=== PATIENT | male | born 1990 | race Caucasian/White ===

== ENCOUNTER 2017-08-15 09:19 | Inpatient (IN) | payer OTHER ==
[2017-08-15] VITALS (7 sets, daily range): BP systolic 122–177; BP diastolic 62–94; PULSE 83–107; RESP 16–20; TEMP 98.3–99.9; O2SAT 96–100
[~2017-08-15] VITALS: Ht 180.3 cm; Wt 102.0 kg
[~2017-08-15 09:19] MED LIST: Z.0.NO CURRENT MEDS
--- NOTE | 2017-08-15 09:51 | PD ---
HPI Chief Complaint: ENT Complaint Time Seen by Provider: 09:39 Travel History International Travel<30 days: No Contact w/Intl Traveler<30days: No Traveled to known affect area: No History of Present Illness HPI This is a 27-year-old male who presents to the emergency department with sore throat that's been going on for 1 week, constant, moderate severity unable to swallow or eat and drink for 2 days because of severe pain. His voice is changed. He has felt feverish. He was sent here from an urgent care for concern for "acute tonsillitis". [facility] Past Medical History Medical History: Denies Significant Hx Diminished Hearing: No Immunizations Current: Yes Influenza Vaccination: No Past Surgical History Surgical History: No Previous Surgery Social History Alcohol Use: Yes (DAILY) Tobacco Use: Yes (< 1 ppd) Substance Use: No Allergies-Medications (Allergen,Severity, Reaction): Coded Allergies: No Known Allergies (Verified Adverse Reaction, Unknown, 08/15/17) Reported Meds & Prescriptions Reported Meds & Active Scripts Active No Active Prescriptions or Reported Medications Review of Systems Except as stated in HPI: all other systems reviewed are Neg Physical Exam Narrative GENERAL:Well appearing, no acute distress SKIN: Focused skin assessment warm and dry. HEAD: Atraumatic. Normocephalic. EYES: Pupils equal and round. No injection or drainage. ENT: Swelling, erythema and fullness of the left tonsillar pillar with uvular deviation to the right consistent with a peritonsillar abscess. Hot potato voice. NECK: Trachea midline. CARDIOVASCULAR: Regular rate and rhythm. No murmur appreciated. RESPIRATORY: Clear to auscultation. Breath sounds equal bilaterally. GASTROINTESTINAL: Abdomen soft, non-tender, nondistended. MUSCULOSKELETAL: No obvious deformities. NEUROLOGICAL: Awake and alert. No obvious cranial nerve deficits. Moving all extremities. PSYCHIATRIC: Appropriate mood and affect; insight and judgment normal. Data Data Last Documented VS Vital Signs Date Time Temp Pulse Resp B/P (MAP) Pulse Ox O2 Delivery O2 Flow Rate FiO2 08/15/17 09:21 99.9 107 18 177/94 (121) 96 Orders Orders Complete Blood Count With Diff (08/15/17 09:46) Comprehensive Metabolic Panel (08/15/17 09:46) ^ Insert Iv (08/15/17 09:46) Clindamycin 600 Mg/Ns Premix (Cleocin 60 (08/15/17 10:00) Dexamethasone Inj (Decadron Inj) (08/15/17 10:00) Sodium Chlor 0.9% 1000 Ml Inj (Ns 1000 M (08/15/17 10:00) Group A Rapid Strep Screen (08/15/17 09:48) MDM Medical Decision Making Medical Screen Exam Complete: Yes Emergency Medical Condition: Yes Interpretation(s) Temperature is 100.9 Differential Diagnosis Strep pharyngitis, mononucleosis, peritonsillar abscess Narrative Course This is a 27-year-old male who presents to the emergency department with pharyngitis that's been worsening. On exam he has a peritonsillar abscess. He is having difficulty staying hydrated at home. I think patient requires admission for IV antibiotics, steroids and ENT consultation for possible incision and drainage. Scripts No Active Prescriptions or Reported Meds Deborah Santana MD Aug 15, 2017 09:51
[2017-08-15] MEDS ORDERED: DEXAMETHASONE SOD PHOS 4 MG/ML VIAL IV PUSH ONE (10:00)
[2017-08-15] MEDS ORDERED: SODIUM CHLOR 0.9% 1000 ML INJ 1,000 ML IV SCH (10:00)
[2017-08-15] MEDS ORDERED: CLINDAMYCIN 600 MG/NS PREMIX 50 ML IV ONE (10:00)
[2017-08-15 10:24] LABS: AUTOMATED NEUTROPHIL # 11.5 TH/MM3 (1.8-7.7); BASOPHIL % 0.2 % (0.0-2.0); EOSINOPHIL % 0.3 % (0.0-4.0); HEMATOCRIT 47.7 % (39.0-51.0); LYMPH % 9.6 % (9.0-44.0); LYMPHOCYTE # 1.4 TH/MM3 (1.0-4.8); MEAN CELL VOLUME 89.8 FL (80.0-100.0); MEAN CORPUSCULAR HGB CONC 35.7 % (32.0-36.0); MEAN PLATELET VOLUME 7.4 FL (7.0-11.0); MONO % 9.5 % (0.0-8.0); MONOCYTE # 1.4 TH/MM3 (0-0.9); NEUT % 80.4 % (16.0-70.0); PLATELET COUNT 211 TH/MM3 (150-450); RED BLOOD COUNT 5.31 MIL/MM3 (4.50-5.90); RED CELL DISTRIBUTION WIDTH 12.3 % (11.6-17.2); WHITE BLOOD COUNT 14.2 TH/MM3 (4.0-11.0)
[2017-08-15 10:42] LABS: ALBUMIN 4.1 GM/DL (3.4-5.0); AST (GOT) 17 U/L (15-37); BICARBONATE 26.5 MEQ/L (21.0-32.0); BLOOD UREA NITROGEN 9 MG/DL (7-18); CALCIUM 9.5 MG/DL (8.5-10.1); CHLORIDE 102 MEQ/L (98-107); CREATININE 0.98 MG/DL (0.60-1.30); GLOMERULAR FILTRATION RATE 90 ML/MIN (>89); GLUCOSE,RANDOM 104 MG/DL (74-106); SODIUM (NA) 137 MEQ/L (136-145)
[2017-08-15 10:45] LABS: ALKALINE PHOSPHATASE 60 U/L (45-117); ALT (GPT) 42 U/L (12-78); TOTAL BILIRUBIN ADULT 0.9 MG/DL (0.2-1.0); TOTAL PROTEIN 8.6 GM/DL (6.4-8.2)
[2017-08-15 11:29] LABS: BANDS 16 % (0-6); LYMPHOCYTES 13 % (9-44); MONOCYTES 8 % (0-8); NEUTROPHIL # MANUAL DIFF 10.9 TH/MM3 (1.8-7.7); POLYS (SEG NEUTROPHILS) 61 % (16-70)
[2017-08-15] MEDS ORDERED: NALOXONE HCL 0.4 MG/ML AMP IV PUSH PRN (11:45)
[2017-08-15] MEDS ORDERED: ACETAMINOPHEN 325 MG TAB PO PRN (11:45)
[2017-08-15] MEDS ORDERED: MAGNESIUM HYDROXIDE SUSP 30 ML CUP PO PRN (11:45)
[2017-08-15] MEDS ORDERED: SENNOSIDES 8.6 MG TAB PO PRN (11:45)
[2017-08-15] MEDS ORDERED: SODIUM CHLORIDE 0.9% FLUSH 10 ML FLUSH IV FLUSH PRN (11:45)
[2017-08-15] MEDS ORDERED: BISACODYL 10 MG SUPP RECTAL PRN (11:45)
[2017-08-15] MEDS ORDERED: LACTULOSE SYRUP 20 GM/30 ML CUP PO PRN (11:45)
--- NOTE | 2017-08-15 12:10 | PD ---
Physical Exam Date Seen by Provider: Aug 15, 2017 Time Seen by Provider: 10:55 Narrative I received this patient from the [facility]. The patient was seen previously by Dr. Deborah Wang. Please see her H&P for further details. This patient presented with sore throat. Patient had obvious tonsillitis with probable peritonsillar abscess. He had a deviation from his left peritonsillar area with uvular displacement to the right. The patient also experiencing dysphagia. Data Data Last Documented VS Vital Signs Date Time Temp Pulse Resp B/P (MAP) Pulse Ox O2 Delivery O2 Flow Rate FiO2 08/15/17 10:17 99.3 91 18 149/78 (101) 100 Room Air Orders Orders Complete Blood Count With Diff (08/15/17 09:46) Comprehensive Metabolic Panel (08/15/17 09:46) ^ Insert Iv (08/15/17 09:46) Clindamycin 600 Mg/Ns Premix (Cleocin 60 (08/15/17 10:00) Dexamethasone Inj (Decadron Inj) (08/15/17 10:00) Sodium Chlor 0.9% 1000 Ml Inj (Ns 1000 M (08/15/17 10:00) Group A Rapid Strep Screen (08/15/17 09:48) Strep Culture (Group A) (08/15/17 09:54) Admit To Inpatient (08/15/17 ) Code Status (08/15/17 11:45) Vital Signs (Adult) Q4H (08/15/17 11:45) Activity Oob Ad Taylor (08/15/17 11:45) Sodium Chloride 0.9% Flush (Ns Flush) (08/15/17 11:45) Sodium Chloride 0.9% Flush (Ns Flush) (08/15/17 21:00) Acetaminophen (Tylenol) (08/15/17 11:45) Basic Metabolic Panel (Bmp) (08/16/17 06:00) Comprehensive Metabolic Panel (08/16/17 06:00) Resp Oxygen Chris C Titrat 1-4 L (08/15/17 ) Scd Bilateral/Knee High DYANA.BID (08/15/17 11:45) Naloxone Inj (Narcan Inj) (08/15/17 11:45) Docusate Sodium-Senna (Estefani-Colace) (08/15/17 21:00) Magnesium Hydroxide Liq (Milk Of Magnesi (08/15/17 11:45) Sennosides (Senokot) (08/15/17 11:45) Bisacodyl Supp (Dulcolax Supp) (08/15/17 11:45) Lactulose Liq (Lactulose Liq) (08/15/17 11:45) Inpatient Certification (08/15/17 ) Admit Order (Ed Use Only) (08/15/17 11:57) Labs Laboratory Tests Test 08/15/17 10:10 White Blood Count 14.2 TH/MM3 Red Blood Count 5.31 MIL/MM3 Hemoglobin 17.0 GM/DL Hematocrit 47.7 % Mean Corpuscular Volume 89.8 FL Mean Corpuscular Hemoglobin 32.0 PG Mean Corpuscular Hemoglobin Concent 35.7 % Red Cell Distribution Width 12.3 % Platelet Count 211 TH/MM3 Mean Platelet Volume 7.4 FL Neutrophils (%) (Auto) 80.4 % Lymphocytes (%) (Auto) 9.6 % Monocytes (%) (Auto) 9.5 % Eosinophils (%) (Auto) 0.3 % Basophils (%) (Auto) 0.2 % Neutrophils # (Auto) 11.5 TH/MM3 Lymphocytes # (Auto) 1.4 TH/MM3 Monocytes # (Auto) 1.4 TH/MM3 Eosinophils # (Auto) 0.0 TH/MM3 Basophils # (Auto) 0.0 TH/MM3 CBC Comment AUTO DIFF Differential Total Cells Counted 100 Neutrophils % (Manual) 61 % Band Neutrophils % 16 % Lymphocytes % 13 % Monocytes % 8 % Eosinophils % 2 % Neutrophils # (Manual) 10.9 TH/MM3 Differential Comment FINAL DIFF MANUAL Atypical Lymphocytes % Platelet Estimate NORMAL Platelet Morphology Comment NORMAL Red Cell Morphology Comment NORMAL Blood Urea Nitrogen 9 MG/DL Creatinine 0.98 MG/DL Random Glucose 104 MG/DL Total Protein 8.6 GM/DL Albumin 4.1 GM/DL Calcium Level 9.5 MG/DL Alkaline Phosphatase 60 U/L Aspartate Amino Transf (AST/SGOT) 17 U/L Alanine Aminotransferase (ALT/SGPT) 42 U/L Total Bilirubin 0.9 MG/DL Sodium Level 137 MEQ/L Potassium Level 4.2 MEQ/L Chloride Level 102 MEQ/L Carbon Dioxide Level 26.5 MEQ/L Anion Gap 9 MEQ/L Estimat Glomerular Filtration Rate 90 ML/MIN [facility] Medical Record Reviewed: Yes Supervised Visit with FRANCIA: No Narrative Course 27-year-old male presents with 4 day history of worsening sore throat. Patient has what appears to be a left peritonsillar abscess. The patient's been given formula grams of Decadron. He is also been given clindamycin intravenously. He 'll be admitted to the resident service. Given his presentation, he will be a full admit. White count was 14,000. Diagnosis Primary Impression: left peritonsillar abscess Additional Impressions: Dysphagia Leukocytosis Admitting Information Admitting Physician Requests: Admit Patient Instructions: General Instructions Departure Forms: Tests/Procedures Scripts No Active Prescriptions or Reported Meds Sumit Smith MD Aug 15, 2017 12:10
[2017-08-15] MEDS: DEXAMETHASONE SOD PHOS 4 MG/ML VIAL IV PUSH SCH ×2 (12:15→21:18)
[2017-08-15] MEDS ORDERED: KETOROLAC TROMETHAMINE 30 MG/ML (IVP) VIAL IV PUSH PRN (12:15)
--- NOTE | 2017-08-15 12:16 | HHI.HP ---
HPI Service [facility] Primary Care Physician No Primary Care Physician Admission Diagnosis left paratonsillar abscess, Dysphagia Diagnoses: Travel History International Travel<30 Days: No Contact w/Intl Traveler <30 Da: No Traveled to Known Affected Are: No History of Present Illness 27 yo male no significant medical history presents with several days of sore throat and painful swelling. He endorses some fevers and chills. He went to an urgent care and the patient was sent to the ER with concerns for acute cellulitis. Patient was noted to have a left peritonsillar abscess. He's been unable to eat because of the throat pain. Review of Systems Constitutional: COMPLAINS OF: Fever, Chills Eyes: DENIES: Blurred vision, Diplopia Ears, nose, mouth, throat: COMPLAINS OF: Throat pain Respiratory: DENIES: Shortness of breath Cardiovascular: DENIES: Chest pain Gastrointestinal: COMPLAINS OF: Difficulty Swallowing, DENIES: Abdominal pain, Nausea, Vomiting Musculoskeletal: DENIES: Joint pain, Muscle aches Integumentary: DENIES: Abnormal pigmentation Neurologic: DENIES: Abnormal gait Psychiatric: DENIES: Mood changes, Depression Past Family Social History Past Medical History None Past Surgical History None Allergies: Coded Allergies: No Known Allergies (Verified Allergy, Unknown, 08/15/17) Family History NO significant family history Social History Smokes cigarettes daily, alcohol on occasion, denies illicit drugs Physical Exam Vital Signs Vital Signs Date Time Temp Pulse Resp B/P (MAP) Pulse Ox O2 Delivery O2 Flow Rate FiO2 08/15/17 10:17 99.3 91 18 149/78 (101) 100 Room Air 08/15/17 10:02 18 08/15/17 09:21 99.9 107 18 177/94 (121) 96 Physical Exam GENERAL: This is a well-nourished, well-developed patient, appears uncomfortable SKIN: No rashes, ecchymoses or lesions. Cool and dry. HEAD: Atraumatic. Normocephalic. No temporal or scalp tenderness. EYES: Pupils equal round and reactive. Extraocular motions intact. No scleral icterus. No injection or drainage. ENT: Significant swelling of the tonsils bilaterally with left tonsil with more swelling than right, uvula is deviated to the right. Exudates are present. Airways patent. Muffled voice. Tolerating secretions. NECK: Trachea midline. CARDIOVASCULAR: Regular rate and rhythm without murmurs, gallops, or rubs. RESPIRATORY: Clear to auscultation. Breath sounds equal bilaterally. No wheezes , rales, or rhonchi. GASTROINTESTINAL: Abdomen soft, non-tender, nondistended. MUSCULOSKELETAL: Extremities without clubbing, cyanosis, or edema. No joint tenderness, effusion, or edema noted. No calf tenderness. NEUROLOGICAL: Awake and alert. . Motor and sensory grossly within normal limits. Five out of 5 muscle strength in all muscle groups. Normal speech. Laboratory Laboratory Tests Test 08/15/17 10:10 White Blood Count 14.2 Red Blood Count 5.31 Hemoglobin 17.0 Hematocrit 47.7 Mean Corpuscular Volume 89.8 Mean Corpuscular Hemoglobin 32.0 Mean Corpuscular Hemoglobin Concent 35.7 Red Cell Distribution Width 12.3 Platelet Count 211 Mean Platelet Volume 7.4 Neutrophils (%) (Auto) 80.4 Lymphocytes (%) (Auto) 9.6 Monocytes (%) (Auto) 9.5 Eosinophils (%) (Auto) 0.3 Basophils (%) (Auto) 0.2 Neutrophils # (Auto) 11.5 Lymphocytes # (Auto) 1.4 Monocytes # (Auto) 1.4 Eosinophils # (Auto) 0.0 Basophils # (Auto) 0.0 CBC Comment AUTO DIFF Differential Total Cells Counted 100 Neutrophils % (Manual) 61 Band Neutrophils % 16 Lymphocytes % 13 Monocytes % 8 Eosinophils % 2 Neutrophils # (Manual) 10.9 Differential Comment FINAL DIFF MANUAL Atypical Lymphocytes Platelet Estimate NORMAL Platelet Morphology Comment NORMAL Red Cell Morphology Comment NORMAL Blood Urea Nitrogen 9 Creatinine 0.98 Random Glucose 104 Total Protein 8.6 Albumin 4.1 Calcium Level 9.5 Alkaline Phosphatase 60 Aspartate Amino Transf (AST/SGOT) 17 Alanine Aminotransferase (ALT/SGPT) 42 Total Bilirubin 0.9 Sodium Level 137 Potassium Level 4.2 Chloride Level 102 Carbon Dioxide Level 26.5 Anion Gap 9 Estimat Glomerular Filtration Rate 90 Date/Time Source Procedure Growth Status 08/15/17 09:54 Throat Group A Streptococcus Screen Pending Received Result Diagram: 08/15/17 1010 08/15/17 1010 Caprini VTE Risk Assessment Caprini VTE Risk Assessment: No/Low Risk (score <= 1) Caprini Risk Assessment Model Point Value = 1 Point Value = 2 Point Value = 3 Point Value = 5 Age 41-60 Minor surgery BMI > 25 kg/m2 Swollen legs Varicose veins or History of unexplained or recurrent spontaneous Oral contraceptives or hormone replacement Sepsis (< 1 month) Serious lung disease, including pneumonia (< 1 month) Abnormal pulmonary function Acute myocardial infarction Congestive heart failure (< 1 month) History of inflammatory bowel disease Medical patient at bed rest Age 61-74 Arthroscopic surgery Major open surgery (> 45 min) Laparoscopic surgery (> 45 min) Malignancy Confined to bed (> 72 hours) Immobilizing plaster cast Central venous access Age >= 75 History of VTE Family history of VTE Factor V Leiden Prothrombin [id number] Lupus anticoagulant Anticardiolipin antibodies Elevated serum homocysteine Heparin-induced thrombocytopenia Other congenital or acquired thrombophilia Stroke (< 1 month) Elective arthroplasty Hip, pelvis, or leg fracture Acute spinal cord injury (< 1 month) Prophylaxis Regimen Total Risk Factor Score Risk Level Prophylaxis Regimen 0-1 Low Early ambulation 2 Moderate Order ONE of the following: *Sequential Compression Device (SCD) *Heparin 5000 units SQ BID 3-4 Higher Order ONE of the following medications: *Heparin 5000 units SQ TID *Enoxaparin/Lovenox 40 mg SQ daily (WT < 150 kg, CrCl > 30 mL/min) *Enoxaparin/Lovenox 30 mg SQ daily (WT < 150 kg, CrCl > 10-29 mL/min) *Enoxaparin/Lovenox 30 mg SQ BID (WT < 150 kg, CrCl > 30 mL/min) AND/OR *Sequential Compression Device (SCD) 5 or more Highest Order ONE of the following medications: *Heparin 5000 units SQ TID (Preferred with Epidurals) *Enoxaparin/Lovenox 40 mg SQ daily (WT < 150 kg, CrCl > 30 mL/min) *Enoxaparin/Lovenox 30 mg SQ daily (WT < 150 kg, CrCl > 10-29 mL/min) *Enoxaparin/Lovenox 30 mg SQ BID (WT < 150 kg, CrCl > 30 mL/min) AND *Sequential Compression Device (SCD) Assessment and Plan Problem List: (1) Peritonsillar abscess ICD Code: J36 - Peritonsillar abscess Assessment and Plan 27-year-old male with left peritonsillar abscess Peritonsillar abscess, strep negative - Patient is status post 1 dose of clindamycin and Decadron in the ER - We'll continue the patient on IV clindamycin every 8hrs - Toradol 30 mg IV every 6 when necessary pain and swelling - Dexamethasone 4 mg IV twice a day - IV fluids - We'll monitor the patient for clinical improvement, it fails to improve on IV steroids and IV antibiotics will consult ENT - Currently nothing by mouth but may advance his diet as he feels he can tolerate Normal saline at 100 cc per hour Electrolytes are currently within normal limits continue to monitor DVT prophylaxis with bilateral SCDs Code Status FULL Discussed Condition With Discussed case with ER doc Physician Certification 2 Midnight Certification Type: Admission for Inpatient Services Order for Inpatient Services The services are ordered in accordance with Medicare regulations or non- Medicare payer requirements, as applicable. In the case of services not specified as inpatient-only, they are appropriately provided as inpatient services in accordance with the 2-midnight benchmark. Estimated LOS (days): 2 days is the estimated time the patient will need to remain in the hospital, assuming treatment plan goals are met and no additional complications. Post-Hospital Plan: Home Zonia Goldberg MD Aug 15, 2017 12:16
[2017-08-15] MEDS: SODIUM CHLOR 0.9% 1000 ML INJ 1,000 ML IV SCH ×2 (12:32→22:58)
[2017-08-15] MEDS: DOCUSATE SODIUM 50 MG/SENNA 8.6 MG TAB PO SCH (21:00)
[2017-08-15] MEDS: SODIUM CHLORIDE 0.9% FLUSH 10 ML FLUSH IV FLUSH SCH (21:18)
[2017-08-15] MEDS: CLINDAMYCIN INJ 600 MG in SODIUM CHLORIDE 0.9% INJ 100 ML IV SCH (22:59)
[2017-08-16] MEDS: CLINDAMYCIN INJ 600 MG in SODIUM CHLORIDE 0.9% INJ 100 ML IV SCH ×2 (04:35→11:58)
[2017-08-16 07:31] LABS: ALBUMIN 3.2 GM/DL (3.4-5.0); ALKALINE PHOSPHATASE 53 U/L (45-117); ALT (GPT) 31 U/L (12-78); AST (GOT) 14 U/L (15-37); BICARBONATE 23.8 MEQ/L (21.0-32.0); BLOOD UREA NITROGEN 10 MG/DL (7-18); CALCIUM 8.8 MG/DL (8.5-10.1); CHLORIDE 106 MEQ/L (98-107); CREATININE 0.71 MG/DL (0.60-1.30); GLOMERULAR FILTRATION RATE 131 ML/MIN (>89); GLUCOSE,RANDOM 98 MG/DL (74-106); SODIUM (NA) 139 MEQ/L (136-145); TOTAL BILIRUBIN ADULT 0.7 MG/DL (0.2-1.0); TOTAL PROTEIN 7.1 GM/DL (6.4-8.2)
[2017-08-16 07:39] VITALS: BP 130/70; PULSE 82; RESP 18; TEMP 97.8; O2SAT 97
[2017-08-16] MEDS: DOCUSATE SODIUM 50 MG/SENNA 8.6 MG TAB PO SCH (09:00)
[2017-08-16] MEDS: SODIUM CHLORIDE 0.9% FLUSH 10 ML FLUSH IV FLUSH SCH (09:00)
[2017-08-16] MEDS: SODIUM CHLOR 0.9% 1000 ML INJ 1,000 ML IV SCH (09:28)
[2017-08-16] MEDS: DEXAMETHASONE SOD PHOS 4 MG/ML VIAL IV PUSH SCH (09:28)
[2017-08-16 11:17] VITALS: BP 146/83; PULSE 69; RESP 18; TEMP 98; O2SAT 95
[2017-08-16] MEDS ORDERED: CLIN300C5 PO (13:20)
[2017-08-16] MEDS ORDERED: PRED20 PO (13:20)
--- NOTE | 2017-08-16 13:21 | HHI.DCPOC ---
Discharge Care Plan Diagnosis: (1) Peritonsillar abscess (2) Dysphagia (3) Leukocytosis Goals to Promote Your Health * To prevent worsening of your condition and complications * To maintain your health at the optimal level Directions to Meet Your Goals Take your medications as prescribed Follow your dietary instruction Follow activity as directed Keep your appointments as scheduled Take your immunizations and boosters as scheduled If your symptoms worsen call your PCP, if no PCP go to Urgent Care Center or Emergency Room Smoking is Dangerous to Your Health. Avoid second hand smoke Call the 24-hour hour crisis hotline for domestic abuse at Elmer Walker MD Aug 16, 2017 13:21
--- NOTE | 2017-08-16 13:22 | HHI.PR ---
Subjective Remarks Patient reports he feels 100 times better. He wants to go home. States his throat pain has significantly improved. No fevers. Objective Vitals Vital Signs Date Time Temp Pulse Resp B/P (MAP) Pulse Ox O2 Delivery O2 Flow Rate FiO2 08/16/17 11:17 98.0 69 18 146/83 (104) 95 08/16/17 07:39 97.8 82 18 130/70 (90) 97 08/15/17 20:48 98.3 96 18 143/87 (105) 96 08/15/17 20:00 98.4 83 20 122/62 (82) 98 08/15/17 19:30 98 08/15/17 16:49 85 16 136/65 (88) 99 Room Air 08/15/17 14:18 101 17 136/62 (86) 99 Room Air I/O 08/15/17 08/15/17 08/15/17 08/16/17 08/16/17 08/16/17 07:00 15:00 23:00 07:00 15:00 23:00 Intake Total 1050 ml Balance 1050 ml Intake IV Total 1050 ml Result Diagram: 08/15/17 1010 08/16/17 0555 Objective Remarks GENERAL: This is a well-nourished, well-developed patient, in no apparent distress. HEENT: Shotty lymphadenopathy on the left. Uvula midline.Tonsil on the left with some erythema and swelling. No pus. CARDIOVASCULAR: Normal rate and regular rhythm without murmurs, gallops, or rubs. RESPIRATORY: Good respiratory efforts. Breath sounds equal and clear to auscultation bilaterally. GASTROINTESTINAL: Abdomen soft, non-tender, non-distended. Normal active bowel sounds MUSCULOSKELETAL: Extremities without cyanosis, or edema. NEURO: Alert & Oriented x4 to person, place, time, situation. Moves all ext x4 PSYCH: Appropriate mood and affect. A/P Problem List: (1) Peritonsillar abscess ICD Code: J36 - Peritonsillar abscess Assessment and Plan 27-year-old male admitted with probable peritonsillar abscess. Strep negative. The patient was admitted and treated with IV clindamycin and Decadron. His symptoms quickly and significantly improved within 24 hours. He is expected to continue to improve at this point. He is stable for discharge on oral clindamycin and prednisone. Discharge Planning Discharge home in good condition Activity: Regular as tolerated Diet: Regular as tolerated Follow-up with PCP as scheduled Meds: Per med rec Elmer Walker MD Aug 16, 2017 13:22
== END 2017-08-16 14:03 | disposition home or self-care (01) | DRG 153 ==
LOC: NEPE 09:19 → NEDA 11:59 → NEPHCDU 20:41
PROVIDERS: ADMIT Family Medicine; ATTEND Family Medicine
DX: J36 Peritonsillar abscess (principal); R13.10 Dysphagia, unspecified; F17.210 Nicotine dependence, cigarettes, uncomplicated
CPT/HCPCS: 80053; 85007; 85027; 87081; 87880; 96361; 96365; 96375; J1100; J1885; J7030